=== PATIENT | male | born 1950 | race Caucasian/White ===

== ENCOUNTER 2017-08-13 07:50 | Day surgery (SDC) | payer MEDICARE, OTHER ==
[2017-08-13] MEDS ORDERED: LIDOCAINE 1%, 20ML ONE ×2 (08:20→08:21)
== END 2017-08-13 08:59 | disposition home or self-care (01) ==
LOC: OUT 07:50
PROVIDERS: ATTEND Internal Medicine
DX: Z02.9 Encounter for administrative examinations, unspecified (principal)
CPT/HCPCS: J3490

== ENCOUNTER 2017-08-22 06:40 | Day surgery (SDC) | payer MEDICARE, OTHER ==
[~2017-08-22] VITALS: Ht 180.3 cm; Wt 78.6 kg
[2017-08-22] MEDS ORDERED: SODIUM CHLORIDE 0.9% 1,000 ML IV SCH (07:12)
[2017-08-22] MEDS ORDERED: TRAM50TA2 PO (07:14)
[2017-08-22] MEDS ORDERED: RIVA10TA PO (07:14)
[2017-08-22] MEDS ORDERED: PANT20TA3 PO (07:14)
[2017-08-22] MEDS ORDERED: METO25TA35 PO (07:14)
[2017-08-22 07:48] VITALS: BP 136/81
[2017-08-22] MEDS ORDERED: LIDOCAINE 1%, 20ML ONE (08:22)
[2017-08-27 15:11] LABS: ALBUMIN CSF 22 mg/dL (11-48); ALBUMIN SERUM 4.2 g/dL (3.6-4.8); CSF IGG INDEX 0.6 (0.0-0.7); CSF/SERUM ALBUMIN INDEX 5 (0-8); IGG SERUM 939 mg/dL (700-1600); IGG/ALBUMIN RATIO CSF 0.13 (0.00-0.25); MYELIN BASIC PROTEIN CSF 4.3 ng/mL (0.0-1.2)
== END 2017-08-22 13:50 ==
LOC: RAD 06:40 → OUT 13:50
PROVIDERS: ATTEND Internal Medicine
DX: H46.3 Toxic optic neuropathy (principal); G93.3 Postviral and related fatigue syndromes; Z88.5 Allergy status to narcotic agent
CPT/HCPCS: 36415; 62270; 82040; 82042; 82784; 83605; 83873; 86645; 86695; 86696; 86762; 86777; 86778; J7030; J3490

== ENCOUNTER → 2018-05-22 | Outpatient (CLI) | payer MEDICARE, OTHER ==
[~2018-05-22] VITALS: Ht 177.8 cm; Wt 77.9 kg
[~2018-05-22] MED LIST: FAMVIR PO; FINA5TAB4 PO; LACTATED RINGERS 1,000 ML IV SCH; LIDOCAINE-MPF 1%, 2ML INFIL ONE; METO25TA35 PO; PANT20TA3 PO; PANT40TA5 PO; RIVA10TA PO; RIVA20TA PO; TRAM50TA2 PO
[2018-05-22 07:49] VITALS: BP 137/53
== END | disposition home or self-care (01) ==
LOC: OUT 06:23 → EDSTATUS 09:30
PROVIDERS: ATTEND Urology
DX: Z02.9 Encounter for administrative examinations, unspecified (principal)

== ENCOUNTER → 2020-04-09 | Outpatient (CLI) | payer MEDICARE, OTHER ==
[~2020-04-09] MED LIST changes: -LACTATED RINGERS 1,000 ML IV SCH; -LIDOCAINE-MPF 1%, 2ML INFIL ONE; -RIVA10TA PO; +RIVA10TA2 PO
== END | disposition home or self-care (01) ==
LOC: PETCFH 08:15
PROVIDERS: ATTEND Internal Medicine
DX: C85.10 Unspecified B-cell lymphoma, unspecified site (principal); R06.02 Shortness of breath; Z90.49 Acquired absence of other specified parts of digestive tract
CPT/HCPCS: 78815; A9552